=== PATIENT | female | born 1945 | race Caucasian/White ===

== ENCOUNTER 2017-01-10 14:47 | Inpatient (IN) | payer MEDICARE, OTHER ==
[~2017-01-10] VITALS: Ht 172.7 cm; Wt 121.1 kg
--- NOTE | ~2017-01-10 | HP ---
PATIENT'S NAME: SANTIAGO GERMAIN [facility] AGE: 71 Y [address] ROOM: [place] [address] LOCATION: GPCU ADMIT DATE: 01/10/2017 History & Physical DISCHARGE DATE: FAMILY PHYSICIAN: KEITH CONWAY MD ATTENDING PHYSICIAN: Pippa Quintanilla DATE OF SERVICE: CHIEF COMPLAINT: Persistent atrial fibrillation. HISTORY OF PRESENT ILLNESS: The patient is a pleasant 71-year-old female with past medical history of CAD, status post multiple PCI, persistent atrial fibrillation, systolic heart failure and hypertension, who presents here for sotalol loading dose. The patient was seen by her silk winding machine operator, Dr. Quintanilla yesterday and was found to be in atrial fibrillation. The patient went to see her Cardiology for a routine visit. The patient has had multiple electrical cardioversions in the past. It was elected to admit the patient for sotalol loading dose and closer monitor with telemonitor and EKG. The patient currently denies chest pain, shortness of breath, orthopnea, dizziness, change in vision, lower extremity edema, nausea, vomiting, abdominal pain, or diarrhea. The patient reports that she is fairly active, exercises somewhat regularly, and reports that she swims regularly. MEDICAL HISTORY: 1. CAD, status post PCI. 2. Persistent atrial fibrillation. 3. Hypothyroidism. 4. Hypertension. 5. Type B descending thoracic aorta dissection. 6. Systolic CHF. SURGICAL HISTORY: 1. ICD placement. 2. Cholecystectomy. 3. Back surgery. FAMILY HISTORY: Sister has a history of coronary artery disease. SOCIAL HISTORY: The patient denies of smoking. She is retired currently. 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 PATIENT'S NAME: SANTIAGO GERMAIN [facility] AGE: 71 Y [address] ROOM: [place] [address] LOCATION: GPCU ADMIT DATE: 01/10/2017 History & Physical DISCHARGE DATE: FAMILY PHYSICIAN: KEITH CONWAY MD ATTENDING PHYSICIAN: Pippa Quintanilla ALLERGIES: LOVENOX. MEDICATIONS: Please see medication list. REVIEW OF SYSTEMS: All systems have been reviewed and are negative except for what is mentioned in the HPI. PHYSICAL EXAMINATION: VITAL SIGNS: Blood pressure 154/100, heart rate of 71, respiratory rate 14, and afebrile. HEAD: Normocephalic, atraumatic. EYES: Sclerae nonicteric. Extraocular muscles intact. NOSE: No nasal discharge. EARS: No ear discharge. THROAT: Moist oral mucosa. NECK: No JVD. Supple. CHEST: Clear to auscultation bilaterally. HEART: Regular rate and rhythm. No murmur, rubs, or gallops. ABDOMEN: Soft, nontender, and nondistended. Bowel sounds present. SKIN: Warm to touch. No lesion noted. MUSCULOSKELETAL: No obvious joint effusion. Range of motion intact. DELINQUENT NOTICE MACHINE OPERATOR: The patient is alert and oriented. Motor and sensory grossly intact. LABORATORY DATA: ProBNP of 1403. BUN of 29, creatinine 1.1, chloride of 111, CO2 of 26, potassium 4.5, glucose of 89. ASSESSMENT AND PLAN: 1. Persistent atrial fibrillation. The patient is a 71-year-old with past medical history of coronary artery disease, hypertension, and systolic heart failure, who is here for persistent atrial fibrillation found on routine cardiology visit. The patient is here for loading dose of sotalol. The patient is going to be admitted for greater than 48 hours. We will admit the patient as an inpatient. Initial EKG shows QTc of 447. EKG every morning. Resume sotalol dosing per Cardiology. We will keep the patient on telemonitor. The patient also has elevated GLORY-VASc score, to continue her Pradaxa. 2. History of coronary artery disease, status post PCI. Continue aspirin, Coreg, and Crestor. The patient is stable. 3. Systolic heart failure. Last echo shows EF of 20%-25%. The patient currently has a defibrillator. The patient appears compensated. To PATIENT'S NAME: SANTIAGO GERMAIN [facility] AGE: 71 Y [address] ROOM: [id number] [place], [place] [address] LOCATION: [facility] ADMIT DATE: 01/10/2017 History & Physical DISCHARGE DATE: FAMILY PHYSICIAN: KEITH CONWAY MD ATTENDING PHYSICIAN: Pippa Quintanilla continue home medication of Lasix, Coreg, and lisinopril. 4. Hypertension, stable. Continue home medications. 5. Hypothyroidism, stable. Continue Synthroid. 6. History of type B dissection of descending thoracic aorta. The patient has been followed as an outpatient by serial CT. Last CT done in 2012, stable. The patient denies any abdominal pain and chest pain currently. Greater than 30 minutes spent on the patient care. 50% of the time spent with direct interaction with the patient and nursing staff. We will admit the patient as an inpatient for greater than 48 hours for sotalol dosing. Cardiology is on board. MD DENISE CASTANEDA/mini /[id number] D: [id number] T: [id number] HISTORY & PHYSICAL
--- NOTE | ~2017-01-10 | OR ---
PATIENT'S NAME: SANTIAGO GERMAIN [facility] AGE: 71 Y [address] ROOM: [place] [address] LOCATION: GPCU ADMIT DATE: 01/10/2017 OR/Procedure Report DISCHARGE DATE: 01/12/2017 FAMILY PHYSICIAN: Kali Flores MD ATTENDING PHYSICIAN: Pippa Cifuentes SURGEON: Pippa Cifuentes MD BEADING INSTALLER: DATE OF PROCEDURE: This is a 71-year-old woman with recurrent symptomatic atrial fibrillation. She was admitted to the hospital and started on sotalol. She failed to convert, so she was brought to the procedural unit. She was connected to monitoring equipment. Anesthesia provided propofol and when deeply asleep, I delivered a 31 joule synchronized shock using her implantable cardioverted defibrillator. The patient promptly converted from atrial fibrillation to sinus rhythm and atrioventricular pacing. CONCLUSION: Successful cardioversion from atrial fibrillation to sinus rhythm. PIPPA CIFUENTES MD PE/modl /[id number] d: 01/12/172030 t: 01/14/17 1014, OPERATIVE SUMMARY
--- NOTE | ~2017-01-10 | DS ---
PATIENT'S NAME: SANTIAGO GERMAIN [facility] AGE: 71 Y [address] ROOM: [id number] [place], [place] [address] LOCATION: GPCU ADMIT DATE: 01/10/2017 Discharge Summary DISCHARGE DATE: 01/12/2017 FAMILY PHYSICIAN: Kali Flores MD ATTENDING PHYSICIAN: Pippa Quintanilla FINAL DIAGNOSES: 1. Persistent atrial fibrillation. 2. Essential hypertension. 3. Systolic congestive heart failure. 4. Hypothyroidism. 5. Coronary artery disease. PROCEDURES: Include direct current cardioversion by Dr. Quintanilla on 01/12/2017. CONSULTATIONS: Dr. Wilson and Dr. Quintanilla for Cardiology. HOSPITAL COURSE: Please see details of admission in H and P by Dr. Salazar. Briefly, the patient was admitted with persistent atrial fibrillation. Sotalol was initiated 80 mg daily from the onset. Her home medications were continued as per parameters tolerated. The patient felt well throughout her stay. The patient remained in atrial fibrillation and was kept n.p.o. for anticipated cardioversion on 01/12/2017. The patient tolerated the procedure well. She had no ill affects postprocedure and was felt stable for discharge. DIAGNOSTICS: On admission, sodium was 141, potassium 4.5, chloride 111, bicarb 20, glucose 89, BUN 29, creatinine 1.1, pro-BNP was 1403. On the day of discharge, sodium was 140, potassium 4.4, chloride 108, bicarb 25, glucose 96, BUN 33, and creatinine 1.2. DISCHARGE INSTRUCTIONS: The patient is discharged home on cardiac diet. Activity is as tolerated. She is to follow up with Dr. Dominguez in [address] Flores in 1 month. DISCHARGE MEDICATIONS: 1. Zyloprim 300 mg daily. 2. Aspirin 81 mg daily. 3. Vitamin D3 1000 units daily. 4. Pradaxa 75 mg twice daily. 5. Lasix 20 mg in the morning. 6. Lasix 10 mg twice daily [id number] of the 20 mg at noon and 5 p.m. 7. Levothyroxine 125 mcg twice daily. 8. Lisinopril 10 mg at bedtime. 9. Crestor 20 mg daily. PATIENT'S NAME: SANTIAGO GERMAIN [facility] AGE: 71 Y [address] ROOM: [facility] [place] [place], [place] [address] LOCATION: GPCU ADMIT DATE: 01/10/2017 Discharge Summary DISCHARGE DATE: 01/12/2017 FAMILY PHYSICIAN: Kali Flores MD ATTENDING PHYSICIAN: Pippa Quintanilla 10. Sotalol 80 mg daily. 11. Tylenol 1000 mg every 6 hours as needed for pain. 12. Ultram 50 mg every 4 hours as needed. 13. CoQ10 100 mg daily. 14. Fish oil 1000 mg daily. 15. Nitroglycerin 0.4 mg sublingual p.r.n. chest pain. We do appreciate participating in this patient's care and thank you very much for the ability to serve her while hospitalized at [facility]. Time spent coordinating details of discharge was 29 minutes of which was spent coordinating with consulting physician and care management, completion of medication reconciliation, and education to the patient and family on the above-mentioned diagnoses. DACIA BEAS[place] FOR [employer] MD KATHERINE/modl /[id number] d: 01/13/17216 t: 01/16/170, DISCHARGE SUMMARY
[~2017-01-10 14:47] MED LIST: ASPIRIN LO-DOSE81 MG PO; COQ-10100 MG PO; COREG6.25 MG PO; FISH OIL1000 MG PO; FUROSEMIDE20 MG PO; LEVOTHROID (S125 MCG PO; LIPITOR20 MG PO; PRADAXA75 MG PO; PRINIVIL (ZESTR20 MG PO; ZYLOPRIM300 MG PO
[2017-01-10] MEDS ORDERED: LASIX20 MG PO (15:56)
[2017-01-10] MEDS ORDERED: CRESTOR20 MG PO (15:57)
[2017-01-10] MEDS ORDERED: ULTRAM50 MG PO (15:58)
[2017-01-10] MEDS ORDERED: NITROSTAT0.4 MG SL (15:59)
[2017-01-10] MEDS ORDERED: VITAMIN D1000 UNIT PO (15:59)
[2017-01-10] MEDS ORDERED: TYLENOL EXTRA500 MG PO (16:00)
[2017-01-10 16:09] LABS: ANION GAP 12.5 (10.0-19.0); CALCIUM 9.6 mg/dL (8.5-10.5); CREATININE 1.1 mg/dL (0.5-1.1); POTASSIUM 4.5 mMol/L (3.7-5.1)
--- NOTE | 2017-01-10 16:37 | NUR ---
PATIENT ADMITED FOR SOTALOL THERAPY. VS-154/100, 70, 97.7, 20, 95% ON ROOM AIR. PT. IS UP AD MESFIN IN ROOM. HX: CHF, PACER/AICD, A-FIB, CAD, NSTEMI. DR. CIFUENTES WROTE ORDERS.
--- NOTE | 2017-01-10 16:41 | NUR ---
Significant Event: A/OX3, VSS ON ROOM AIR. UP AD MESFIN. IV STARTED TO LEFT HAND. NO COMPLAINTS OF PAIN. SOTALOL MED STARTED TODAY. EKG'S DAILY IN AM, INITIAL EKG SHOWED QT <500. Follow up: CONTINUE WITH POC.
--- NOTE | 2017-01-11 04:44 | NUR ---
Significant Event: VSS, RA, HR-paced at 70, in afib, Xanax given at HS, Tramadol this am, independent in room, EKG this am Follow up: continue plan of care
--- NOTE | 2017-01-11 16:24 | NUR ---
Significant Event: A/OX3, VSS ON ROOM AIR. UP AD MESFIN IN ROOM & HALLS. NO COMPLAINTS OF PAIN. QTC THIS AM WAS 483 ON EKG, SOTALOL GIVEN AGAIN THIS AM. NPO AFTER MIDNIGHT FOR POSSIBLE CARDIOVERSION WITH [employer]ENT[employer] PACER REP IN AM, AUTUMN PACER REP CALLED AND IS AWARE. LABS IN AM. PERMITS NEEDS SIGNED AFTER RISKS/BENEFITS ARE EXPLAINED. SLIV TO LEFT WRIST. Follow up: CONTINUE WITH POC.
--- NOTE | 2017-01-12 05:24 | NUR ---
Significant Event: A/O, VSS, paced at 70, remains in afib, RA, no c/o pain, patient up independently in room, Lyssa for sleep, EKG this am Follow up: NPO for possible cardioversion today with [employer] Rep
[2017-01-12 06:17] LABS: ANION GAP 11.4 (10.0-19.0); CALCIUM 9.6 mg/dL (8.5-10.5); CREATININE 1.2 mg/dL (0.5-1.1); POTASSIUM 4.4 mMol/L (3.7-5.1)
--- NOTE | 2017-01-12 13:15 | NUR ---
Introduced self and role of care management to patient and her . [place] Patient says she is going home today. Denies discharge needs.
[2017-01-12] MEDS ORDERED: BETAPACE (GENER80 MG PO (14:16)
--- NOTE | 2017-01-12 14:56 | NUR ---
Patient dismissed to home with . Denies question or concern of discharge. Discussed medications that were stopped and highlighted on patient copy. Also discussed new med sotalol and provided education. Patient verbalizes understanding. IV dc'd.
[2017-05-06] MEDS ORDERED: PRADAXA75 MG PO (13:49)
[2017-05-06] MEDS ORDERED: CRESTOR20 MG PO (13:50)
[2017-05-06] MEDS ORDERED: PLAVIX75 MG PO (13:52)
== END 2017-01-12 14:45 | disposition disaster alternative care site (69) | DRG 309 ==
LOC: GPCU 14:47
PROVIDERS: Internal Medicine; Internal Medicine Cardiovascular Disease; ADMIT Internal Medicine
PROC: 5A2204Z Restoration of Cardiac Rhythm, Single (ICD-10-PCS; principal; 2017-01-12)
DX: I48.1 Persistent atrial fibrillation (principal); I50.22 Chronic systolic (congestive) heart failure; Z68.41 Body mass index [BMI] 40.0-44.9, adult; I25.10 Atherosclerotic heart disease of native coronary artery without angina pectoris; I10 Essential (primary) hypertension; E03.9 Hypothyroidism, unspecified; I25.5 Ischemic cardiomyopathy; E78.5 Hyperlipidemia, unspecified
CPT/HCPCS: J7030

== ENCOUNTER → 2017-01-19 | Outpatient (CLI) | payer MEDICARE, OTHER ==
[~2017-01-19] MED LIST changes: +BETAPACE (GENER80 MG PO; +CRESTOR20 MG PO; +ELIQUIS5 MG PO; +LASIX20 MG PO; +LIPITOR40 MG PO; +NITROSTAT0.4 MG SL; +NORVASC2.5 MG PO; +PLAVIX75 MG PO; +PROTONIX40 MG PO; +TYLENOL EXTRA500 MG PO; +ULTRAM50 MG PO; +VITAMIN D1000 UNIT PO; +ZOCOR20 M1 PO
--- NOTE | ~2017-01-19 | PUL ---
PATIENT'S NAME: SANTIAGO GERMAIN [facility] AGE: 71 Y [address] ROOM: [place] [address] LOCATION: [facility] ADMIT DATE: 01/19/2017 Pulmonary DISCHARGE DATE: FAMILY PHYSICIAN: KEITH CONWAY MD ATTENDING PHYSICIAN: Pippa Quintanilla NAME OF PROCEDURE: Home Sleep Test DATE OF PROCEDURE: 01/19/17 TECH: Tali Coronado [facility] SUMMARY: Patient underwent home sleep testing using a type III device. Patient was studied for 6 hours 56 minutes. In that time there were 27 hypopneas and 1 apnea. Overall apnea/hypopnea index was normal at 4 events per hour. Oxygen saturations ranged from 87-94%. Heart rate ranged from 70-108 beats per minute. IMPRESSION: Normal home sleep test. PLAN: Patient will receive results from the ordering provider. EDNA MITCHELL MD [facility]/ /[id number] dtt: 01/26/17 0742 Holly David E. dtd: 01/23/17 1532
== END | disposition disaster alternative care site (69) ==
LOC: GSLP 01-09 15:03
DX: I50.9 Heart failure, unspecified (principal); I10 Essential (primary) hypertension; I48.91 Unspecified atrial fibrillation; I25.10 Atherosclerotic heart disease of native coronary artery without angina pectoris; G47.10 Hypersomnia, unspecified; R06.83 Snoring
CPT/HCPCS: G0399

== ENCOUNTER 2017-03-05 13:01 | Inpatient (IN) | payer MEDICARE, OTHER ==
[~2017-03-05] VITALS: Ht 172.7 cm; Wt 121.6 kg
--- NOTE | ~2017-03-05 | HP ---
PATIENT'S NAME: SANTIAGO GERMAIN [facility] AGE: 71 Y [address] ROOM: [place] [address] LOCATION: GPCU ADMIT DATE: 03/05/2017 History & Physical DISCHARGE DATE: FAMILY PHYSICIAN: KEITH CONWAY MD ATTENDING PHYSICIAN: Pippa Quintanilla DATE OF SERVICE: HISTORY OF PRESENT ILLNESS: This is a 71-year-old female who was out fishing with her yesterday. As she was getting out of the boat, she started to have chest pain and felt very hot and weak. She did give herself three regular aspirin and noted minor relief from the pain. The pain did return with an intensity of 9 to 10/10. Due to this, she did call the ambulance service and she was subsequently transferred to [facility] for higher level of care and evaluation. She did have elevated cardiac enzymes in the emergency department, so she was taken to the catheterization suite by Dr. Quintanilla, where she underwent a selective coronary angiography. She was found to have patent stents and no interventions were performed. At this time, she is resting comfortably in her bed in the progressive care unit. Her catheterization site is soft and nontender with adequate CMS and once again her pain has resolved. She denies any recent changes to her health as far as presyncope or syncope, palpitation, shortness of breath, nausea or vomiting. PAST MEDICAL HISTORY: 1. Coronary artery disease with previous coronary artery stenting to her LAD and OM1. 2. Persistent atrial fibrillation. 3. Chronic systolic congestive heart failure. 4. Ischemic cardiomyopathy. 5. Previous history of sick sinus syndrome. 6. GERD. 7. Hypothyroidism. 8. Moderate obstructive sleep apnea. 9. History of migraines. 10. Obesity. 11. History of pulmonary embolus. 12. Long-term anticoagulation with Pradaxa. 13. Renal insufficiency. PAST SURGICAL HISTORY: 1. Coronary artery stenting as listed above. 2. Dual-chamber permanent pacemaker implanted in 2011. 3. Upgrade to a [employer] Bi-V ICD in 2014. 4. Cholecystectomy. PATIENT'S NAME: SANTIAGO GERMAIN [facility] AGE: 71 Y [address] ROOM: [place] [address] LOCATION: [facility] ADMIT DATE: 03/05/2017 History & Physical DISCHARGE DATE: FAMILY PHYSICIAN: KEITH CONWAY MD ATTENDING PHYSICIAN: Pippa Quintanilla 5. Thyroidectomy. 6. History of back surgeries. FAMILY HISTORY: The patient's mother had a history of spinal cancer. Her sister had a history of heart problems and she has another sister with a history of heart murmur. SOCIAL HISTORY: The patient is a former cigarette smoker. She smokes 1-1/2 packs of cigarettes per day for a total of 20 years. She quit smoking in the year 1999. She admits to alcohol use on one day a week and on those days, she will have only 1 drink. She denies illicit drug use. HOME MEDICATIONS: 1. Pradaxa 75 mg p.o. twice daily. 2. Aspirin 81 mg p.o. daily. 3. Allopurinol 300 mg p.o. daily. 4. Levothyroxine 125 mcg p.o. twice daily. 5. Lasix 20 mg p.o. daily. 6. Lisinopril 20 mg p.o. daily in the evening. 7. CoQ10 100 mg p.o. daily. 8. Fish oil 1000 mg p.o. daily. 9. Lasix 10 mg p.o. twice daily. 10. Ultram 50 mg p.o. every 4 hours as needed for pain. 11. Nitroglycerin 0.4 mg sublingual p.r.n. chest pain. 12. Vitamin D3, 1000 units p.o. daily. 13. Tylenol 1000 mg p.o. every 6 hours as needed for pain or fever. 14. Sotalol 80 mg p.o. daily. 15. Zocor 20 mg p.o. daily in the evening. 16. Norvasc 2.5 mg p.o. daily. MEDICATION ALLERGIES: Lovenox causing hives and itching. REVIEW OF SYSTEMS: Pertinent positive review of systems listed in the HPI. All other review of systems evaluated and negative. PHYSICAL EXAMINATION: VITAL SIGNS: Temperature 98.1, pulse 72, respirations 18, blood pressure 137/62, and O2 saturation 93% on room air. The patient weighs 121.6 kg. SKIN: Lasana, warm, and dry. EYES: Sclerae clear. No xanthelasmas. ENT: Oral mucosa is pink and moist. No jugular venous distention or carotid bruits. PATIENT'S NAME: SANTIAGO GERMAIN [facility] AGE: 71 Y [address] ROOM: [id number] [place], [place] [address] LOCATION: GPCU ADMIT DATE: 03/05/2017 History & Physical DISCHARGE DATE: FAMILY PHYSICIAN: KEITH CONWAY MD ATTENDING PHYSICIAN: Pippa Quintanilla CHEST: Respirations are even and unlabored. LUNGS: Clear to auscultation. HEART: Regular rate and rhythm, normal S1 and S2. No murmurs, rubs, or gallops. ABDOMEN: Soft, nontender. MUSCULOSKELETAL: Gait is normal. EXTREMITIES: Peripheral pulses palpable. No clubbing, cyanosis, or edema. PSYCHIATRIC: Alert and oriented. Mood and affect are appropriate. IMPRESSION AND PLAN: Per Dr. Quintanilla: 1. Eng-PP-qcyherxxv myocardial infarction. Currently status post selective coronary angiography without need for intervention. Once again, she does have patent stents and her cardiac enzymes are currently trending back to normal. 2. Coronary artery disease. We will to her aspirin and Plavix. We will also change her statin to Lipitor 40 mg p.o. daily. 3. Ischemic cardiomyopathy. Bi-V ICD in place and appears euvolemic at this time. She has ventricularly paced. Telemetry strips at this time. 4. Persistent atrial fibrillation. We will change her long-term anticoagulation from Pradaxa to Eliquis due to some study showing increased risk for myocardial infarction with Pradaxa. 5. Chronic kidney disease, stage 3. Currently improved with IV hydration. 6. Obesity. We will continue to monitor, evaluate, and treat as appropriate. Thank you for allowing [facility] to interact in the care of this patient. PHILLIP CAMACHO APRN FOR MD ALEX MORELOS/mini /[id number] D: [id number] T: [id number] HISTORY & PHYSICAL
--- NOTE | ~2017-03-05 | ER ---
PATIENT'S NAME: SANTIAGO GERMAIN [facility] AGE: 71 Y [address] ROOM: [place] [address] LOCATION: GPCU ADMIT DATE: 03/05/2017 ER/Outpatient Report DISCHARGE DATE: FAMILY PHYSICIAN: PHYSICIAN, UNKNOWN ATTENDING PHYSICIAN: Pippa Quintanilla CHIEF COMPLAINT: Chest pain. HISTORY OF PRESENT ILLNESS: Ms. Germain was in a [place] trying to put a boat in the dock when she developed chest pain. She took 3 full-size aspirin at that time and called the ambulance. She was given some nitroglycerin en route by EMS. This helped minimally with her chest pain. It did go away initially and now is starting to come back again. She describes pressure and tightness in her chest. It feels like her prior heart attacks. She also describes pain in both arms and significant amount of sweating and some shortness of breath. She denies any other symptoms such as vision changes. She is weak secondary to her symptoms. The exact onset was approximately noon. She did arrive by ambulance. PAST MEDICAL HISTORY: Documented on the record and reviewed by me. SOCIAL HISTORY: Documented on the record and reviewed by me. MEDICATIONS: Documented on the record and reviewed by me. ALLERGIES: DOCUMENTED ON THE RECORD AND REVIEWED BY ME. REVIEW OF SYSTEMS: All systems reviewed and negative except as noted in the HPI. PHYSICAL EXAMINATION: VITAL SIGNS: Blood pressure 98/44, pulse 84, respiratory rate 18, temperature 96.3, SpO2 is 95% on room air. Pain appears to be 8/10 to 9/10. GENERAL: Age-appropriate female, appearing to be in obvious pain and in mild distress. NEUROLOGIC: Awake and alert. GCS is 14. Opens eyes to command. No focal deficits. No asymmetry. HEENT: Normocephalic, atraumatic. Eyes are PERRL. Oropharynx is clear. NECK: Supple. Trachea is midline. PATIENT'S NAME: SANTIAGO GERMAIN [facility] AGE: 71 Y [address] ROOM: [place] [address] LOCATION: GPCU ADMIT DATE: 03/05/2017 ER/Outpatient Report DISCHARGE DATE: FAMILY PHYSICIAN: PHYSICIAN, UNKNOWN ATTENDING PHYSICIAN: Pippa Quintanilla CHEST: Heart is regular rate and rhythm with no obvious murmurs. LUNGS: Clear to auscultation bilaterally with no rhonchi, wheezes, or rales. ABDOMEN: Soft, nontender, and nondistended. No rebound or guarding. BACK: Normal to inspection on palpation. EXTREMITIES: Well formed and well perfused. They are cool. SKIN: Diaphoretic everywhere. No obvious rashes. LABORATORY DATA AND X-RAYS: Chest x-ray, grossly unremarkable per my review. EKG is a paced rhythm. No clear signs of ischemia. Repeat EKG grossly unchanged. No significant changes compared to prior. Labs: CMP unremarkable. INR is less than 1. Initial CPK, CK-MB, and troponin were not elevated. Repeat troponin was elevated at 0.312. CMS: Creatinine is 1.3, GFR is 41. No other pertinent lab abnormalities. IMPRESSION: Non-ST segment elevation myocardial infarction. EMERGENCY DEPARTMENT COURSE: The patient was seen and evaluated as above. She was given morphine and fluids. She had marked improvement, in fact, complete resolution of her pain. On repeat set of enzymes based on her presentation, they began to be elevated. This is indicative of an NSTEMI. Repeat EKG remains stable with no evidence of obvious ischemia. Dr. Quintanilla, Agriculture Intern was contacted and evaluated the patient. We will take her to the catheterization lab for definitive evaluation at this time. The patient remained otherwise asymptomatic after administration of fluids and some morphine. Further nitroglycerin was not used as they did not appear to help. We were beginning to have low blood pressures. However after fluids and cessation of nitroglycerin, the patient did have marked improvement in her blood pressures. She continued to do well otherwise. CRITICAL CARE: 38 minutes. Critical care time was spent on this patient. Care is warranted for life- threatening condition of heart attack. Care involves discussion with EMS, patient evaluation, re-evaluation, direction of volume resuscitation, interpretation and ordering of EKG, chest x-ray, and labs and consult with Cardiology. PATIENT'S NAME: SANTIAGO GERMAIN [facility] AGE: 71 Y [address] ROOM: [place] [address] LOCATION: GPCU ADMIT DATE: 03/05/2017 ER/Outpatient Report DISCHARGE DATE: FAMILY PHYSICIAN: PHYSICIAN, UNKNOWN ATTENDING PHYSICIAN: Pippa Quintanilla MD PASHA LOUIE/modl /[id number] d: 03/06/17700 t: 03/09/17710, OUTPATIENT REPORT
--- NOTE | ~2017-03-05 | CATH ---
Cardiac Diagnostic Report Demographics Patient Name MARCELLUS Monteiro Gender Female Date of 1945 Age 71 year(s) Patient Number [id number] Date of Study 03/05/2017 Visit Number [id number] Room Number G6305 [place] [id number] Ht 172.72 cm Wt 121.6 kg Referring [facility] Primary Physician Physician Samaria Johns MD Performing [facility] Secondary Physician Physician Samaria Johns MD Diagnostic [facility] Assisting Physician Physician Samaria Johns MD Interventional Physician Washer And Capper Machine Operator Physician Findings and Conclusions Diagnostic Findings and Conclusion No culprit identified. There are small septals and diagnals which could be responsible. Patent previous stents. 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 Diagnostic Recommendations Maximize medical treatment. Switch Pradaxa which has been associated with AMI incidence. Triple therapy for 1 month. Procedure Description The patient was brought to the diagnostic cardiac catheterization-EP laboratory in the fasting, non-sedated state. Informed consent was obtained in verbal form after the risks and benefits were explained. The patient had no further questions and agreed to proceed. The planned puncture-incision site(s) were shaved and prepped with ChloraPrep and draped in the usual sterile manner. Conscious sedation, supplemental oxygen, and pain control medications were delivered by a registered nurse under physician guidance. Surface ECG rhythm, blood pressure measurement, and pulse oximetry were monitored throughout the procedure. Arterial access. The access site was infiltrated with lidocaine. The vessel was entered with the Seldinger technique. A sheath was advanced into the vessel and used for catheter placement. Left heart catheterization. A catheter was advanced across the aortic valve to the left ventricle under fluoroscopic guidance. Resting hemodynamics were obtained. Selective right coronary angiography. A catheter was advanced into the right coronary vessel ostium under fluoroscopic guidance. Contrast was injected by hand. Images were obtained in multiple projections. Selective left coronary angiography. A catheter was advanced into the left coronary vessel ostium under Fluoroscopic guidance. Contrast was injected by hand. Images were obtained in multiple projections. Arterial artery hemostasis was achieved. The patient was transferred to a regular nursing floor via cart accompanied by a nurse. The patient left the laboratory in stable condition. Diagnostic Cath Status: Emergency Procedure Procedure Type Diagnostic procedure:Angiography:, Coronary Angios w/LHC Indications: NSTEMI and Chest pain. Angiographic Findings Dominance: Right Cardiac Arteries and Lesion Findings LMCA: Normal (0% Stenosis).Patent LAD: proximal patent, mid ectatic, distal 30% in stent restenosis, 50% apical. Diag 2 has 30% lesion, Diag 1 is small with 90% narrowing. Lesion on Dist LAD: Distal subsection.30% stenosis . Lesion on Dist LAD: Distal subsection.50% stenosis . Lesion on 2nd Diag: Proximal subsection.30% stenosis . Lesion on 1st Diag: Proximal subsection.90% stenosis . LCx: ecatis, 30% proximal lesion OM patent distal stent.There is a previous stent on Prox CX Proximal subsection. There is a previous stent on 1st Ob Malu Proximal subsection. Lesion on Prox CX: Proximal subsection.30% stenosis . RCA: ectatic, 30% proximal-30% distal PL is 30% PDA is 30% Lesion on Prox RCA: Proximal subsection.30% stenosis . Lesion on Dist RCA: Distal subsection.30% stenosis . Lesion on 1st RPL: Proximal subsection.30% stenosis . Lesion on R PDA: Proximal subsection.30% stenosis . Coronary Tree Procedure Data Procedure Date Date: 03/05/2017Start: 05:21 PMEnd: 05:44 PM Entry Locations - Retrograde Percutaneous access was performed through the Right Radial artery (Primary location). A 6 Fr sheath was inserted. Hemostasis was successfully obtained using Mechanical Compression. Closure Comments: 15cc's of air in R-Band applied by Vik.. Procedure Medications Order and Administration + + +-------+-------+ !Time !Medication !Dosage !Route ! + + +-------+-------+ !03/05/2017 !Versed !1 mg !I.V. ! !05:18 PM ! ! ! ! + + +-------+-------+ !03/05/2017 !Fentanyl !50 mcg !I.V. ! !05:19 PM ! ! ! ! + + +-------+-------+ !03/05/2017 !Versed !1 mg !I.V. ! !05:21 PM ! ! ! ! + + +-------+-------+ !03/05/2017 !PAE Radial Cocktail: Heparin 5000 units, ! !I.A. ! !05:23 PM !Nitroglycerin 200mcg, Verapamil 3 mg ! ! ! ! !(ACC_3) ! ! ! + + +-------+-------+ !03/05/2017 !Plavix (ACC_8) !600 mg !P.O. ! !05:43 PM ! ! ! ! + + +-------+-------+ Devices Used - A6 Fr. BS JR 4 Diag. Catheterwas used for:Right coronary angiography. - A6 Fr. BS JL 3.5 Diag. Catheterwas used for:Left coronary angiography. Contrast Material - Isovue 09859 ml Fluoroscopy Time: Diagnostic: 2:48 minutes. Total: 2:48 minutes. Fluoroscopy Dose: Diagnostic: 1117 mGy. Total: 1117 mGy. Estimated Blood Loss: 15 ml. Medical History Allergies - Other:(lovenox). - Other:(Enoxaparin). Risk Factors The patient risk factors include:prior PCI on 05/03/2013;treated hypertension, family history of premature CAD, last creatinine: 1.3 mg/dl, creatinine clearance: 78.4 ml/min, dyslipidemia, former tobacco use, prior heart failure and prior [place] . Admission Data Admission Date: 03/05/2017 Admission Time: 05:22 PM Admit Source: Emergency department Insurance Payors: Medicare. Admission Medications + +------+------+ + + + + !Medication !Dosage!Times !Last !Last !Administered !Comments ! ! ! !Per !Delivery !Delivery ! ! ! ! ! !Day !Date !Time ! ! ! + +------+------+ + + + + !Aspirin ! ! ! ! !Yes ! ! !(any) ! ! ! ! ! ! ! + +------+------+ + + + + !MOR ! ! ! ! !Yes ! ! !Inhibitor ! ! ! ! ! ! ! !(any) ! ! ! ! ! ! ! + +------+------+ + + + + !Beta Idania! ! ! ! !Yes ! ! !(any) ! ! ! ! ! ! ! + +------+------+ + + + + !Statin (any)! ! ! ! !Yes ! ! + +------+------+ + + + + !Non-Statin ! ! ! ! !Yes ! ! !(any) ! ! ! ! ! ! ! + +------+------+ + + + + !Nitrates (iv! ! ! ! !Yes ! ! !or buccal) ! ! ! ! ! ! ! + +------+------+ + + + + Clinical Evaluation Leading to Procedure - The patient's CAD presentation was assessed as: Non-STEMI.The symptom onset was first noted on 03/05/2017 07:00 AM(time was estimated). 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 Anti-anginal medications were prescribed during the past two weeks. The medication is: Beta Blockers. Snapshots Hemodynamics Condition: Rest O2 Consumption: Estimated: 213.63Heart Rate: 70 bpm Pressures (mmHg) +-----+ + !Site !Pressure ! +-----+ + !LV !120/0 ,5 ! +-----+ + !LV !118/-1 ,5 ! +-----+ + !AO !120/72 (93) ! +-----+ + !LV !119/-1 ,5 ! +-----+ + !AO !110/71 (88) ! +-----+ + Valve Gradients and Areas + +---------+---------+---------+ +---------+ + !Valve !Peak !Mean !Area !Index !Flow !Source ! + +---------+---------+---------+ +---------+ + !Aortic !0 !0 ! ! ! ! ! + +---------+---------+---------+ +---------+ + !Aortic !0 !0 ! ! ! ! ! + +---------+---------+---------+ +---------+ + Shunts Oxygen Values O2 Capacity 195.84 O2 Consumption 213.63 Discharge Data Discharge Date: 03/07/2017 Hospital Status: Inpatient Signatures dtt: Pippa Quintanilla dtd: 03/05/17 1721 Physician Self Edit
--- NOTE | ~2017-03-05 | ECHO ---
Transthoracic Echocardiography Report (TTE) Demographics Patient Name SANTIAGO GERMAIN Date of Study 03/06/2017 Patient Number [id number] Visit Number [id number] Date of 1945 Room Number G6305 Gender Female Number Age 71 year(s) Referring [facility] Analyst Ade Johns MD RDCS, RVT Physician Interpreting [facility] Equipment Processer Storage Physician Samaria Johns MD Supervising Ordering [facility] MD/MLP Physician Samaria Johns MD Nurse Stress Investment Fund Manager Conclusions Contractility Score Summary At rest the following contractility abnormalities were noted: Hypokinesis of the Mid infero-septal, the Basal waldemar-septal, the Basal infero-septal and the Basal anterior segments. Contractility of all other segments appeared normal. Summary Technically difficult exam. The estimated left ventricular ejection fraction is 50%. The left ventricle is mildly dilated . Mild assymetric septal left ventricular hypertrophy. Diastolic assessment reveals Grade I diastolic dysfunction. Mildly dilated right ventricle. The left atrium is severely dilated by LA volume index measurement. The right atrium is moderately dilated. Mild tricuspid regurgitation by color Doppler. There is mild pulmonary hypertension. The pulmonary pressure (RVSP) is 40.49 mmHg. Procedure Type of Study TTE procedure:2D Echocardiogram. Procedure Date Date: 03/06/2017 Start: 07:10 AM Study Location: Inpatient Portable Technical Quality: Adequate visualization Indications:Chest pain. Appropriate Use Criteria: 9 Patient Status: Routine HR: 98 bpm BP: 167/100 mmHg Allergies - Other:(lovenox). - Other:(Enoxaparin). M-Mode/2D Measurements LV Diastolic Dimension: 5.31 cm LV Systolic Dimension: 3.32 cm LV Septum Diastolic: 1.01 cm LV PW Diastolic: 0.9 cm Cardiac Output: 8.35 l/min LA Dimension: 4.6 cm LVOT: 2.1 cm LVOT VTI: 24.6 cm RV Base: 4.13 cm LV Stroke volume: 85.16 ml RV Length: 7.33 cm TAPSE: 2.73 cm TDI-S': 12.4 cm/s Doppler Measurements AV Peak Velocity: 1.41 m/s MV Peak E-Wave: 0.46 m/s AV Peak Gradient: 7.95 mmHg MV Peak A-Wave: 0.84 m/s AV Mean Gradient: 4 mmHg MV E/A Ratio: 0.55 LVOT Peak Velocity: 1.1 m/s MV Deceleration Time: 261 msec TR Velocity:2.85 m/s PV Peak Velocity: 0.74 m/s TR Gradient:32.49 mmHg PV Peak Gradient: 2.21 mmHg Estimated RAP:8 mmHg Estimated PASP: 40.49 mmHg Estimated RVSP: 40 mmHg A' Septal Velocity: 0.09 m/s E' Septal Velocity: 0.05 m/s A' Lateral Velocity: 0.1 m/s E' Lateral Velocity: 0.08 m/s Findings Left Ventricle The left ventricle is mildly dilated . Mild assymetric septal left ventricular hypertrophy. Diastolic assessment reveals Grade I diastolic dysfunction. Right Ventricle Device lead noted in the right ventricle. Mildly dilated right ventricle. Left Atrium The left atrium is severely dilated by LA volume index measurement. Right Atrium The right atrium is moderately dilated. Mitral Valve Mild mitral regurgitation by color Doppler. Aortic Valve The aortic valve is mildly sclerotic. There is trivial aortic regurgitation. Tricuspid Valve Mild tricuspid regurgitation by color Doppler. There is mild pulmonary hypertension. The pulmonary pressure (RVSP) is 40.49 mmHg. Pulmonic Valve Normal pulmonic valve structure and function. Pericardial Effusion No evidence of pericardial effusion. Miscellaneous Visualized portions of the aortic root and ascending aorta appear normal in size. Pleural Effusion No evidence of pleural effusion. Contractility Score LV regional wall motion:(0-Non visualized 1-Normal 2-Hypokinesis 3-Akinesis 4-Dyskinesis 5-Aneurysm) Signature dtt: Pippa Quintanilla dtd: 03/06/17 0710 Physician Self Edit
[~2017-03-05 13:01] MED LIST changes: -ELIQUIS5 MG PO; -LIPITOR40 MG PO; -NORVASC2.5 MG PO; -PLAVIX75 MG PO; -PROTONIX40 MG PO; -ZOCOR20 M1 PO
[2017-03-05 13:35] LABS: BASOPHIL # 0.1 K/uL (0.0-0.2); BASOPHIL % 0.7 %; EOSINOPHIL # 0.7 K/uL (0.0-0.5); EOSINOPHIL % 7.7 %; HEMATOCRIT 43.2 % (33.0-46.0); HEMOGLOBIN 14.4 g/dL (10.0-15.0); IMMATURE GRANULOCYTE % 0.4 %; LYMPHOCYTE # 1.5 K/uL (0.8-4.0); LYMPHOCYTE % 16.2 %; MCH 32.3 pg (27.0-34.0); MCHC 33.3 gm/dL (32.0-36.5); MCV 96.9 fl (83.0-98.0); MONOCYTE # 0.7 K/uL (0.0-1.0); MONOCYTE % 6.9 %; MPV 11.1 fl (9.4-12.4); NEUTROPHIL # (ANC) 6.5 K/uL (1.8-7.8); NEUTROPHIL % 68.1 %; NRBC % 0 /100WBC (0-0.00); PLATELET COUNT 153 K/uL (150-450); RBC 4.46 M/uL (3.50-5.50); RDW-CV 13.9 % (11.9-14.6); WBC 9.5 K/uL (4.0-11.0)
[2017-03-05 13:45] LABS: INR - (THERAPEUTIC) 0.97 (0.92-1.07); PROTIME 10.2 SECONDS (9.8-11.4); PTT 23 SECONDS (25-32)
[2017-03-05 13:57] LABS: ALK PHOS 180 IU/L (33-138); ALT 25 IU/L (12-78); ANION GAP 17.4 (10.0-19.0); AST 20 IU/L (10-40); BLOOD UREA NITROGEN 33 mg/dL (6-24); CALCIUM 9.5 mg/dL (8.5-10.5); CHLORIDE 106 mMol/L (96-110); CO2 22 mMol/L (22-32); CPK 64 IU/L (21-215); CREATININE 1.3 mg/dL (0.5-1.1); ESTIMATED GFR (MDRD EQUATION) 41; MAGNESIUM 2.3 mg/dL (1.8-2.6); POTASSIUM 4.4 mMol/L (3.7-5.1); SODIUM 141 mMol/L (135-145); TOTAL BILIRUBIN 0.7 mg/dL (0.0-1.5); TOTAL PROTEIN 7.5 g/dL (6.0-8.4)
[2017-03-05] MEDS ORDERED: ZOCOR20 M1 PO (18:19)
[2017-03-05] MEDS ORDERED: NORVASC2.5 MG PO (18:19)
--- NOTE | 2017-03-06 05:21 | NUR ---
Significant Event: Patient is alert/oriented x3. Vital signs have been stable. On room air. Tylenol given x1 for back pain, with relief. Otherwise, patient has denied any pain or discomfort throughout the night. Right radial site is soft, non-tender, non-ecchymotic, and CSM WNL; covered with band-aid and coban wrap. TN-I at 1500 was 0.312, at 1800 was 2.430, and at 0000 was 5.060; 0600 cardiac enzymes have not been drawn yet. Patient has denied any acute coronary syndrome symptoms and has slept comfortably throughout the night. Provided education regarding bed alarm policy in the hospital but patient refused bed alarm. She has been up independently in her room with telemetry box. Follow up: Echo this AM. Plan to dismiss back to home today.
[2017-03-06 07:21] LABS: BASOPHIL # 0.1 K/uL (0.0-0.2); BASOPHIL % 0.6 %; EOSINOPHIL # 0.6 K/uL (0.0-0.5); EOSINOPHIL % 6.8 %; HEMATOCRIT 40.9 % (33.0-46.0); HEMOGLOBIN 13.4 g/dL (10.0-15.0); IMMATURE GRANULOCYTE % 0.2 %; LYMPHOCYTE # 1.7 K/uL (0.8-4.0); LYMPHOCYTE % 20.7 %; MCH 31.9 pg (27.0-34.0); MCHC 32.8 gm/dL (32.0-36.5); MCV 97.4 fl (83.0-98.0); MONOCYTE # 0.7 K/uL (0.0-1.0); MONOCYTE % 8.1 %; MPV 10.8 fl (9.4-12.4); NEUTROPHIL # (ANC) 5.1 K/uL (1.8-7.8); NEUTROPHIL % 63.6 %; NRBC % 0 /100WBC (0-0.00); PLATELET COUNT 146 K/uL (150-450); RDW-CV 14.1 % (11.9-14.6)
[2017-03-06 07:57] LABS: ANION GAP 13.1 (10.0-19.0); CALCIUM 9.3 mg/dL (8.5-10.5); POTASSIUM 4.1 mMol/L (3.7-5.1)
--- NOTE | 2017-03-06 12:40 | NUR ---
Introduced self and role of care management to patient. She lives in [place] with her . She is able to do all her own ADL's. She has family that assists as needed. She plans on returning home on discharge. She denies any needs at this time. Will continue to follow.
--- NOTE | 2017-03-06 15:06 | NUR ---
Significant Event: rt wrist is slightly briused but otherwise clean and dry. bandaid and coban on,loosen coban but left on to remind her mg careful. ptis up and independent in room. sr on monitor, vss,has denied needs or pain this shift. Follow up: hometomarrow?
--- NOTE | 2017-03-07 05:26 | NUR ---
Significant event: A/O x 3. Up in room ad liliane. Right radial site with coban and bandaid. VSS. tramadal x 1 and tylenol x 1 for head/back ache. Patient refused bed alarm at night. plan to dc home today
[2017-03-07] MEDS ORDERED: ELIQUIS5 MG PO (09:25)
[2017-03-07] MEDS ORDERED: LIPITOR40 MG PO (09:27)
[2017-03-07] MEDS ORDERED: PLAVIX75 MG PO (09:28)
[2017-03-07] MEDS ORDERED: PROTONIX40 MG PO (09:35)
--- NOTE | 2017-03-07 10:49 | NUR ---
d-dr ord pt dc i-pt up in room all over refuse walk cota has no c/o cp or pain, r)wrist dressing removed and clean bandaid/coban applied site normal not bruise or swollen, vss, pt ate/drank voids well, all meds discussed with changes noted, rx given, teaching on new meds and cath/wrist instructed told and printed r-pt has no questions and anxious to leave p-ta took pt out per wc to car by wc
[2017-05-06] MEDS ORDERED: PRADAXA75 MG PO (13:49)
[2017-05-06] MEDS ORDERED: CRESTOR20 MG PO (13:50)
[2017-05-06] MEDS ORDERED: PLAVIX75 MG PO (13:52)
== END 2017-03-07 10:20 | disposition disaster alternative care site (69) | DRG 281 ==
LOC: GMED 13:01 → GPCU 17:21
PROVIDERS: Emergency Medicine; ADMIT Internal Medicine Cardiovascular Disease
DX: I21.4 Non-ST elevation (NSTEMI) myocardial infarction (principal); I48.1 Persistent atrial fibrillation; I50.22 Chronic systolic (congestive) heart failure; I49.5 Sick sinus syndrome; I13.0 Hypertensive heart and chronic kidney disease with heart failure and stage 1 through stage 4 chronic kidney disease, or unspecified chronic kidney disease; I25.10 Atherosclerotic heart disease of native coronary artery without angina pectoris; Z79.82 Long term (current) use of aspirin; I25.5 Ischemic cardiomyopathy; N18.3 Chronic kidney disease, stage 3 (moderate); K21.9 Gastro-esophageal reflux disease without esophagitis; E66.9 Obesity, unspecified; G47.33 Obstructive sleep apnea (adult) (pediatric); Z95.0 Presence of cardiac pacemaker; Z87.891 Personal history of nicotine dependence
CPT/HCPCS: C1894; J1644; J2250; J2270; J3010; J7030

== ENCOUNTER → 2017-03-05 | Outpatient (CLI) | payer MEDICARE, OTHER | END | disposition disaster alternative care site (69) | LOC: GAMB 12:41 | DX: R07.9 Chest pain, unspecified (principal); Z86.79 Personal history of other diseases of the circulatory system; Z95.0 Presence of cardiac pacemaker; Z79.82 Long term (current) use of aspirin; Z79.899 Other long term (current) drug therapy ==

== ENCOUNTER → 2017-04-08 | Outpatient (CLI) | payer MEDICARE, OTHER ==
[~2017-04-08] MED LIST changes: +ELIQUIS5 MG PO; +LIPITOR40 MG PO; +NORVASC2.5 MG PO; +PLAVIX75 MG PO; +PROTONIX40 MG PO; +ZOCOR20 M1 PO
[2017-04-08 14:39] LABS: ANION GAP 10.6 (10.0-19.0); CALCIUM 9.9 mg/dL (8.5-10.5); CREATININE 1.6 mg/dL (0.5-1.1); POTASSIUM 4.6 mMol/L (3.7-5.1)
== END | disposition disaster alternative care site (69) ==
LOC: LNHI 14:17
PROVIDERS: Internal Medicine Cardiovascular Disease
DX: I25.10 Atherosclerotic heart disease of native coronary artery without angina pectoris (principal); I48.0 Paroxysmal atrial fibrillation; I95.9 Hypotension, unspecified; I50.42 Chronic combined systolic (congestive) and diastolic (congestive) heart failure

== ENCOUNTER → 2017-05-07 | Day surgery (SDC) | payer MEDICARE, OTHER ==
[~2017-05-07] VITALS: Ht 172.7 cm; Wt 120.3 kg
--- NOTE | ~2017-05-07 | OR ---
PATIENT'S NAME: SANTIAGO GERMAIN [facility] AGE: 72 Y [address] ROOM: [place] [address] LOCATION: [facility] [place] ADMIT DATE: 05/07/2017 OR/Procedure Report DISCHARGE DATE: FAMILY PHYSICIAN: KEITH CONWAY MD ATTENDING PHYSICIAN: Amy Cifuentes SURGEON: Amy Cifuentes MD SUPERVISOR COMPOSING ROOM: DATE OF PROCEDURE: 05/07/2017 PROCEDURE PERFORMED: Synchronized cardioversion. INDICATIONS: The patient is a 72-year-old with recurrent symptomatic persistent atrial fibrillation and congestive heart failure with indwelling resynchronization device in place. PROCEDURE IN DETAIL: She was brought to the procedural unit in a fasting state. The [employer] publications sales representative was present. The patient was sedated with 70 mg of propofol and then when fully asleep, we delivered a single synchronized 31 joule shock through her device, and she promptly converted to sinus rhythm and atrioventricular pacing. CONCLUSION: Successful cardioversion from atrial fibrillation to sinus rhythm. PLAN: She will be discharged on the increased dose of sotalol. If she relapses, the options will be a trial of Tikosyn versus ablation. Thank you for allowing me to participate in the care of your patient. AMY CIFUENTES MD PE/mini /[id number] d: 05/07/17 1442 t: 05/07/17 2227, OPERATIVE SUMMARY
[2017-05-07 09:12] LABS: ANION GAP 11.9 (10.0-19.0); CALCIUM 9.6 mg/dL (8.5-10.5); POTASSIUM 4.9 mMol/L (3.7-5.1)
[2017-05-07 09:18] LABS: CREATININE 1.6 mg/dL (0.5-1.1)
== END ==
LOC: GPOC 05-06 16:00 → GSDC 07:42 → GOPP 08:00
PROVIDERS: Internal Medicine Cardiovascular Disease
DX: I48.1 Persistent atrial fibrillation (principal); I13.0 Hypertensive heart and chronic kidney disease with heart failure and stage 1 through stage 4 chronic kidney disease, or unspecified chronic kidney disease; N18.9 Chronic kidney disease, unspecified; I50.22 Chronic systolic (congestive) heart failure; I25.10 Atherosclerotic heart disease of native coronary artery without angina pectoris; I25.2 Old myocardial infarction; K21.9 Gastro-esophageal reflux disease without esophagitis; Z98.890 Other specified postprocedural states; Z88.1 Allergy status to other antibiotic agents; Z79.82 Long term (current) use of aspirin; Z79.899 Other long term (current) drug therapy; Z79.891 Long term (current) use of opiate analgesic
CPT/HCPCS: J2001; J7030